=== PATIENT | male | born 1970 | race Caucasian/White ===

== ENCOUNTER 2016-06-25 21:05 | Emergency (ER) | payer SELFPAY ==
[2016-06-25] MEDS ORDERED: DOXYcycline CAP(*) 100 MG PO ONE ×2 (21:46→21:47)
--- NOTE | 2016-06-25 21:59 | ED ---
Throat Pain/Nasal Congestion - HPI Summary HPI Summary: Pt here w/ Lt sided hearing loss x 2 days. Has had ear discomfort/fullness and sensation that something is in his ear x 2 weeks. When it initially started, got worse after submerging his head underwater in the bath. Thought he may have induced swimmer's ear so started using ear drops - no relief except with an oil based ear drop but this was temporary. He's been taking ibuprofen as well. Has had nasal congestion as well - worse the past couple of days and had a nose bleed earlier today as a result of digital trauma. Stopped w/ pressure and hasn' t returned. Diarrhea 1 x yesterday - normal BM's since. Fever which broke in sweat last night. Denies chills, nausea, vomiting, neck pain. He' starting to get a sore throat. Denies cough, trouble breathing. - History of Current Complaint Chief Complaint: EDEarPain Time Seen by Provider: 06/25/16 21:21 Hx Obtained From: Patient - Allergies/Home Medications Allergies/Adverse Reactions: Allergies Allergy/AdvReac Type Severity Reaction Status Date / Time No Known Allergies Allergy Verified 04/12/16 11:57 PMH/Surg Hx/FS Hx/Imm Hx Previously Healthy: Yes Endocrine/Hematology History: Denies: Hx Diabetes Cardiovascular History: Reports: Hx Angina, Hx Hypertension - pt reports this was d/t a drug habit - improved once he quit - no meds sinc Denies: Hx Congestive Heart Failure Respiratory History: Reports: Other Respiratory Problems/Disorders - pneumothorax Denies: Hx Asthma, Hx Chronic Obstructive Pulmonary Disease (COPD) GI History: Reports: Hx Gastroesophageal Reflux Disease History: Denies: Hx Renal Disease Psychiatric History: Reports: Hx of Violent Episodes Against Others Denies: Hx Eating Disorder - Surgical History Surgery Procedure, Year, and Place: appy Infectious Disease History: No Infectious Disease History: Denies: Hx of Known/Suspected MRSA, Traveled Outside the [place] in Last 30 Days - Family History Known Family History: Positive: Unknown - Social History Occupation: Employed Full-time - self employed Lives: With Family Alcohol Use: Weekly - 5 drinks per week Alcohol Amount: unknown Hx Substance Use: Yes Substance Use Type: Reports: Cocaine, Marijuana Substance Use Comment - Amount & Last Used: 10/26/14 Hx Tobacco Use: Yes Smoking Status (MU): Current Every Day Smoker Amount Used/How Often: 1.5 PPD Review of Systems Constitutional: Other - see HPI Negative: Photophobia, Blurred Vision, Diplopia, Drainage, Erythema ENT: Other - see HPI Negative: Chest Pain Negative: Shortness Of Breath, Cough Gastrointestinal: Other - see HPI Positive: no symptoms reported Negative: Rash Neurological: Negative Psychological: Normal All Other Systems Reviewed And Are Negative: Yes Physical Exam Triage Information Reviewed: Yes Vital Signs On Initial Exam: Initial Vitals Temp Pulse Resp BP Pulse Ox 97.9 F 101 16 177/115 100 06/25/16 21:09 06/25/16 21:09 06/25/16 21:09 06/25/16 21:09 06/25/16 21:09 Vital Signs Reviewed: Yes Appearance: Positive: Well-Appearing, No Pain Distress, Well-Nourished Skin: Positive: Warm, Dry - no erythema, no vesicles over ear/face/scalp Head/Face: Positive: Other - Lt maxillary sinus w/ mild TTP; frontal sinus NTTP Eyes: Positive: Normal, EOMI, Conjunctiva Clear. Negative: Conjunctiva Inflammed, Discharge ENT: Positive: Hearing grossly normal, Pharyngeal erythema, Nasal congestion - Rt nasal passage occluded with boggy turbinates; Lt nasal mucosa w/ yellow mucous vs. ulcerations and scant dried blood. Negative: Nasal drainage, TM red - Rt TM normal; Lt TM w/ opaque fluid behind - no air bubbles or fluid level; ossicles are visible - no erythema, no capillary injection, no edema, no d/c, NTTP, Tonsillar swelling, Tonsillar exudate Neck: Positive: Supple, Tenderness @, Enlarged Nodes @ - B/L posterior cc Ln's; Lt anterior cc LN's and Lt submandibular glands w/ mild TTP Respiratory/Lung Sounds: Positive: Clear to Auscultation, Breath Sounds Present , Other - scar over trachea - pt reports this is from h/o chix pox as an adult w / airway complications resulting in a trach. Negative: Rales, Rhonchi, Stridor , Wheezes Cardiovascular: Positive: Normal, RRR, S1, S2 Musculoskeletal: Positive: Normal, Strength/ROM Intact Neurological: Positive: Normal, Sensory/Motor Intact, Alert, Oriented to Person Place, Time, CN Intact II-III Psychiatric: Positive: Normal Diagnostics - Vital Signs Vital Signs Temp Pulse Resp BP Pulse Ox 06/25/16 21:09 97.9 F 101 16 177/115 100 - Laboratory Lab Statement: Any lab studies that have been ordered have been reviewed, and results considered in the medical decision making process. EENT Course/Dx - Course Course Of Treatment: Explained to pt his hearing loss is most likely the result of fluid behind his Lt ear. This appears to be from nasal congestion and infection which will be treated with doxycycline. Ln's are inflammed as well which NSAID and anbx should address however advised pt to f/u w/ PCP, free clinic or return here if sx persist or worsen. Pt voices understanding. Also discussed his high BP - needs to have this recheck as well and avoid medications that may cause a rise in BP. Pt voices understanding. - Diagnoses Provider Diagnoses: Rhinosinusitis, Inner ear dysfunction Discharge - Discharge Plan Condition: Stable Disposition: HOME Prescriptions: DOXYcycline CAP(*) [DOXYcycline 100MG CAP(*)] 100 mg PO BID #18 cap Patient Education Materials: Rhinosinusitis (ED) Referrals: Timothy Edge MD [Primary Care Provider] - [facility] [Outside] Additional Instructions: You appear to have a nasal/sinus infection which is causing swelling. This swelling can push into your eustachian tube, causing you to have ear congestion and changes/loss in hearing. It is important that you continue ibuprofen with food for swelling control. You may also use saline nasal spray and salt water gargles to reduce swelling of surrounding tissues. Complete antibiotics and follow-up with your PCP. If you do not have one, you may be seen at the free clinic for a re-check or return here. *If symptoms worsen, return to ED
[2016-06-25 22:18] VITALS: BP 160/96
== END 2016-06-25 22:17 | disposition home or self-care (01) ==
LOC: ED 21:05
DX: J32.8 Other chronic sinusitis (principal); H83.2X9 Labyrinthine dysfunction, unspecified ear
CPT/HCPCS: 87641; 99281; A9270-GY

== ENCOUNTER 2016-07-01 03:26 | Emergency (ER) | payer SELFPAY ==
[2016-07-01] MEDS ORDERED: diPHENhydraMINE PO* 50 MG PO ONE (04:39)
[2016-07-01] MEDS ORDERED: Lisinopril TAB* 5 MG PO ONE (04:39)
[2016-07-01] MEDS ORDERED: Acetaminophen TAB* 325 MG PO ONE (04:40)
--- NOTE | 2016-07-01 04:47 | ED ---
Samir Gonzalez SooYoung, scribed for Hiren Rueda MD on 07/01/16 at 0348 . Allergic Reaction/Systemic - HPI Summary HPI Summary: A 46 y/o M presents to ED with c/o L frontal CORTES onset 0230. Describes the pain as "crushing, squeezing." Associated sx: throat pain, L ear pain. He says it feels as though his throat is closing. Aggravating factors: swallowing. Pt is taking Doxy for a sinus infection of L ear. He states having taken a few doses of Doxy and each time, afterwards, he would get a mild CORTES. With each dose, the CORTES seems to get worse. He recently missed two doses and did not have a CORTES. He took Doxy this AM at approx 0200. Pt took 800mg IBP around approx 0130 last night, prior to taking the Doxy, hoping it would prevent the CORTES. - History of Current Complaint Chief Complaint: EDAllergicReaction Time Seen by Provider: 07/01/16 03:28 Hx Obtained From: Patient Onset/Duration: Started hours ago, Still Present Timing: Constant Severity Currently: Mild Pain Intensity: 0 Pain Scale Used: 0-10 Numeric Location: Discrete @ - L frontal CORTES - Allergies/Home Medications Allergies/Adverse Reactions: Allergies Allergy/AdvReac Type Severity Reaction Status Date / Time No Known Allergies Allergy Verified 04/12/16 11:57 PMH/Surg Hx/FS Hx/Imm Hx Previously Healthy: No Endocrine/Hematology History: Denies: Hx Diabetes Cardiovascular History: Reports: Hx Angina, Hx Hypertension - pt reports this was d/t a drug habit - improved once he quit - no meds sinc Denies: Hx Congestive Heart Failure Respiratory History: Reports: Other Respiratory Problems/Disorders - pneumothorax Denies: Hx Asthma, Hx Chronic Obstructive Pulmonary Disease (COPD) GI History: Reports: Hx Gastroesophageal Reflux Disease History: Denies: Hx Renal Disease Psychiatric History: Reports: Hx of Violent Episodes Against Others Denies: Hx Eating Disorder - Surgical History Surgery Procedure, Year, and Place: appy Infectious Disease History: No Infectious Disease History: Denies: Hx of Known/Suspected MRSA, Traveled Outside the [place] in Last 30 Days - Family History Known Family History: Positive: Other - pos: depression, EtOH abuse Negative: Cardiac Disease - Social History Occupation: Employed Full-time - SELF-EMPLOYED Lives: Alone Alcohol Use: Weekly - 5 drinks per week Alcohol Amount: unknown Hx Substance Use: Yes Substance Use Type: Reports: Cocaine, Marijuana Substance Use Comment - Amount & Last Used: 10/26/14 Hx Tobacco Use: Yes Smoking Status (MU): Current Every Day Smoker Amount Used/How Often: 1.5 PPD Review of Systems Positive: Ear Ache - L, Other - throat swelling Positive: Headache - L frontal All Other Systems Reviewed And Are Negative: Yes Physical Exam Triage Information Reviewed: Yes Vital Signs On Initial Exam: Initial Vitals Temp Pulse Resp BP Pulse Ox 98.3 F 94 19 176/118 95 07/01/16 03:33 07/01/16 03:33 07/01/16 03:33 07/01/16 03:33 07/01/16 03:33 Vital Signs Reviewed: Yes Appearance: Positive: Well-Appearing, Pain Distress - MILD Skin: Positive: Warm, Skin Color Reflects Adequate Perfusion, Dry Head/Face: Positive: Normal Head/Face Inspection Eyes: Positive: EOMI, BRYNN ENT: Positive: Normal ENT inspection, Pharynx normal - POSTERIOR PHARYNX IS OPEN , BENIGN, Nasal drainage - RHINORRHEA, TMs normal Neck: Positive: Supple, Nontender Respiratory/Lung Sounds: Positive: Clear to Auscultation, Breath Sounds Present , Other - LUNGS CLEAR. Negative: Stridor Cardiovascular: Positive: RRR Abdomen Description: Positive: Nontender, Soft Bowel Sounds: Positive: Present Musculoskeletal: Positive: Normal, Strength/ROM Intact Neurological: Positive: Normal, Sensory/Motor Intact, Alert, Oriented to Person Place, Time Psychiatric: Positive: Affect/Mood Appropriate Diagnostics - Vital Signs Vital Signs Temp Pulse Resp BP Pulse Ox 07/01/16 03:33 98.3 F 94 19 176/118 95 - Laboratory Lab Statement: Any lab studies that have been ordered have been reviewed, and results considered in the medical decision making process. Allergic Reaction Course/Dx - Course Assessment/Plan: THE HEADACHE HAS OCCURRED 3-4 TIMES IMMEDIATELY AFTER TAKING DOXYCYCLINE. BP IS ALSO HIGH. PATIENT HAS BEEN ON LISINOPRIL 5MG PO QD IN THE PAST. WILL RESTART THAT. STOP THE DOXYCYCLINE, REPLACE WITH AUGMENTIN. F/U WITH PMD. DISCHARGE HOME STABLE. - Diagnoses Provider Diagnoses: Headache, Hypertension, Sinusitis Discharge - Discharge Plan Condition: Stable Disposition: HOME Prescriptions: Amoxicillin/Clavulanate TAB* [Augmentin TAB 875*] 875 mg PO BID #20 tab Lisinopril TAB* [Prinivil TAB 5 MG*] 5 mg PO DAILY #30 tab Patient Education Materials: Acute Headache (ED), Hypertension (ED), Sinusitis (ED) Referrals: Timothy Edge MD [Primary Care Provider] - Additional Instructions: FOLLOW UP WITH YOUR DOCTOR FOR YOUR HIGH BLOOD PRESSURE. STOP THE DOXYCYCLINE. START AUGMENTIN. TAKE THE LISINOPRIL DIRECTED. RETURN TO THE EMERGENCY DEPARTMENT FOR ANY WORSENING OF YOUR CONDITION; HEADACHE , DIFFICULTY WITH SWALLOWING OR BREATHING OR QUESTIONS OR CONCERNS. The documentation as recorded by the Samir hurd SooYoung accurately reflects the service I personally performed and the decisions made by me, Hiren Rueda MD.
[2016-07-01 06:02] VITALS: BP 167/108
== END 2016-07-01 06:02 | disposition home or self-care (01) ==
LOC: ED 03:26
DX: R51 Headache (principal); I10 Essential (primary) hypertension; J32.9 Chronic sinusitis, unspecified; K21.9 Gastro-esophageal reflux disease without esophagitis; F17.210 Nicotine dependence, cigarettes, uncomplicated
CPT/HCPCS: 99283; A9270-GY

== ENCOUNTER 2016-12-25 11:31 | Emergency (ER) | payer SELFPAY ==
[2016-12-25] MEDS ORDERED: Ketorolac INJ* 30 MG/ML 1 ML VIAL IV PUSH ONE (13:30)
[2016-12-25] MEDS ORDERED: Clindamycin 600 MG IVPREMIX(* 600 MG/50 ML SDV IV ONE (13:30)
[2016-12-25] MEDS ORDERED: traMADol TAB* 50 MG PO ONE (16:33)
--- NOTE | 2016-12-25 16:42 | ED ---
Throat Pain/Nasal Congestion - HPI Summary HPI Summary: Pt here w/ Lt lower edntal pain x 1 week. Wiggled it last night as it was loose. This morning at 3am noticed facial swelling, By 6am was much worse. Painful. Denies fever, chills, n/v. Pain radiates into jaw, ear and just under jaw into neck. No trouble breathing or swallowing. H/o dental issue here. 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 - History of Current Complaint Chief Complaint: EDDentalPain Time Seen by Provider: 12/25/16 12:01 Hx Obtained From: Patient - Allergies/Home Medications Allergies/Adverse Reactions: Allergies Allergy/AdvReac Type Severity Reaction Status Date / Time No Known Allergies Allergy Verified 12/25/16 11:53 PMH/Surg Hx/FS Hx/Imm Hx Endocrine/Hematology History: Denies: Hx Diabetes Cardiovascular History: Reports: Hx Angina, Hx Hypertension - pt reports this was d/t a drug habit - improved once he quit - no meds sinc Denies: Hx Congestive Heart Failure Respiratory History: Reports: Other Respiratory Problems/Disorders - pneumothorax Denies: Hx Asthma, Hx Chronic Obstructive Pulmonary Disease (COPD) GI History: Reports: Hx Gastroesophageal Reflux Disease History: Denies: Hx Renal Disease Psychiatric History: Reports: Hx of Violent Episodes Against Others Denies: Hx Eating Disorder - Surgical History Surgery Procedure, Year, and Place: appy Infectious Disease History: No Infectious Disease History: Denies: Hx of Known/Suspected MRSA, Traveled Outside the [place] in Last 30 Days - Family History Known Family History: Positive: Unknown, Other - pos: depression, EtOH abuse Negative: Cardiac Disease - Social History Alcohol Use: Weekly Alcohol Amount: unknown Hx Substance Use: Yes Substance Use Type: Reports: Cocaine, Marijuana Substance Use Comment - Amount & Last Used: 10/26/14 Hx Tobacco Use: Yes Smoking Status (MU): Current Every Day Smoker Amount Used/How Often: 1.5 PPD Physical Exam Vital Signs On Initial Exam: Initial Vitals Temp Pulse Resp BP Pulse Ox 97.7 F 90 18 154/116 99 12/25/16 11:33 12/25/16 11:33 12/25/16 11:33 12/25/16 11:33 12/25/16 11:33 Procedures - Procedure Summary Procedure Summary: Farhan blanc lollipop + cetacaine spray + lido w/ epi - gingival I&D near affected tooth w/ #15 - no purulent drainage, just blood - rinsed with saline after - tolerated well - gauze placed Diagnostics - Vital Signs Vital Signs Temp Pulse Resp BP Pulse Ox 12/25/16 13:53 71 16 146/88 99 12/25/16 11:51 97.7 F 90 18 154/116 97 12/25/16 11:33 97.7 F 90 18 154/116 99 - Laboratory Lab Statement: Any lab studies that have been ordered have been reviewed, and results considered in the medical decision making process. Re-Evaluation - Re-Evaluation First Eval Change: Improved - pt reports swelling has gone down some since toradol, clindamycin IV Discharge - Discharge Plan Condition: Stable Disposition: HOME Prescriptions: Clindamycin CAP* [Cleocin 150 MG CAP*] 300 mg PO Q6H #80 cap traMADol TAB* [Ultram*] 50 mg PO Q6HR PRN #12 tab MDD 4 PRN Reason: Pain Patient Education Materials: Abscess (ED) Referrals: Timothy Edge MD [Primary Care Provider] - Additional Instructions: Continue salt water rinses 5-6 x day - after eating Warm compresses over cheek You may take acetaminophen alternating with tramadol for pain Complete antibiotics - take probiotics in between to prevent diarrhea Porbiotics: Yogurt and/or capsules of L. acidophilus, L. bifidus, L. casei, etc - make sure to get these from the refrigerated food section as they are live and active cultures Follow-up with dentist EJLANI - call Tuesday for appointment *If you facial swelling, pain is worse prior or you develop neck pain, headache , trouble swallowing or breathing, return to ED
[2016-12-25 16:51] VITALS: BP 139/76
== END 2016-12-25 16:49 | disposition home or self-care (01) ==
LOC: ED 11:31
DX: K08.89 Other specified disorders of teeth and supporting structures (principal); F17.210 Nicotine dependence, cigarettes, uncomplicated
CPT/HCPCS: 96374; 96375; 99282; A9270-GY; J1885

== ENCOUNTER 2017-02-01 04:36 | Emergency (ER) | payer SELFPAY ==
[2017-02-01] MEDS ORDERED: Ondansetron INJ* 2 MG/ML VIAL IV ONE (05:27)
[2017-02-01] MEDS ORDERED: Morphine INJ* 4 MG/ML 1 ML SYRINGE IV ONE (05:27)
[2017-02-01] MEDS ORDERED: Lisinopril TAB* 10 MG PO ONE (05:32)
[2017-02-01 06:20] LABS: Hematocrit 38 % (42-52); Hemoglobin 12.6 g/dl (14.0-18.0); Mean Corpuscular HGB Conc 33 g/dl (31-36); Mean Corpuscular Hemoglobin 29 pg (27-31); Mean Corpuscular Volume 89 fL (80-94); Mean Platelet Volume 10 um3 (7.4-10.4); Red Blood Count 4.33 10^6/ul (4.0-5.4); Red Cell Distribution Width 14 % (10.5-15)
[2017-02-01 06:27] LABS: Albumin 3.7 g/dL (3.2-5.2); BUN/Creatinine Ratio 24.7 (8-20); Calcium 9.1 mg/dL (8.6-10.3); EGFR African American 132.5 (>60); Globulin 3.2 g/dL (2-4); Potassium 3.7 mmol/L (3.5-5.0); Total Bilirubin 0.3 mg/dL (0.2-1.0); Total Protein 6.9 g/dL (6.4-8.9)
[2017-02-01 06:43] VITALS: BP 160/101
--- NOTE | 2017-02-01 06:47 | ED ---
I, Kenny,Celestina, scribed for Peter Meredith MD on 02/01/17 at 0527 . Headache - HPI Summary HPI Summary: This 47 y/o male presents to ED for gradually worsening frontal CORTES that started a week ago but worse since yesterday. Positive blurred vision, elevated blood pressure of 180/134. Pt is currently on 10 mg Lisinopril a day. PMHx does includes HTN, GERD, and anxiety/depression. Pt does have dental pain at left bottom jaw that will be followed up by oral surgeon 3 days from today. Primary care involves Dr. Edge. - History Of Current Complaint Chief Complaint: EDHeadache Stated Complaint: HIGH BLOOD PRESSURE//HEADACE Time Seen by Provider: 02/01/17 05:17 Hx Obtained From: Patient, Medical Records Onset/Duration: Gradual Onset Timing: Constant Character: Throbbing Location of Headache: Frontal Aggravating Factor: Nothing Allevating Factors: Nothing Associated Signs And Symptoms: Nausea, Vomiting - Allergies/Home Medications Allergies/Adverse Reactions: Allergies Allergy/AdvReac Type Severity Reaction Status Date / Time No Known Allergies Allergy Verified 02/01/17 04:44 PMH/Surg Hx/FS Hx/Imm Hx Endocrine/Hematology History: Denies: Hx Diabetes Cardiovascular History: Reports: Hx Angina, Hx Hypertension - pt reports this was d/t a drug habit - improved once he quit - no meds sinc Denies: Hx Congestive Heart Failure Respiratory History: Reports: Other Respiratory Problems/Disorders - pneumothorax Denies: Hx Asthma, Hx Chronic Obstructive Pulmonary Disease (COPD) GI History: Reports: Hx Gastroesophageal Reflux Disease History: Denies: Hx Renal Disease Psychiatric History: Reports: Hx of Violent Episodes Against Others Denies: Hx Eating Disorder - Surgical History Surgery Procedure, Year, and Place: appy Infectious Disease History: No Infectious Disease History: Denies: Hx of Known/Suspected MRSA, Traveled Outside the [place] in Last 30 Days - Family History Known Family History: Positive: Other - pos: depression, EtOH abuse Negative: Cardiac Disease - Social History Alcohol Use: Weekly Alcohol Amount: unknown Hx Substance Use: Yes Substance Use Type: Reports: Cocaine, Marijuana Substance Use Comment - Amount & Last Used: last used 10/26/14 Hx Tobacco Use: Yes Smoking Status (MU): Current Every Day Smoker Amount Used/How Often: 1.5 PPD Review of Systems Negative: Fever Positive: Dental Pain - left lower jaw Positive: Vomiting, Nausea Positive: Headache All Other Systems Reviewed And Are Negative: Yes Physical Exam - Summary Physical Exam Summary: The patient is well-nourished in no acute distress and in no acute pain. The skin is warm and dry and skin color reflects adequate perfusion. HEENT: The head is normocephalic and atraumatic. The pupils are equal and reactive. Pt appears to be photophobic. EOMI. The conjunctivae are clear and without drainage. Nares are patent and without drainage. Mouth reveals moist mucous membranes and the throat is without erythema and exudate. The external ears are intact. The ear canals are patent and without drainage. The tympanic membranes are intact. Neck is supple with full range of motion and non-tender. No nuchal rigidity. There are no carotid bruits. There is no neck vein distension. Respiratory: Chest is non-tender. Lungs are clear to auscultation and breath sounds are symmetrical and equal. Cardiovascular: Heart is regular rate and rhythm. There is no murmur or rub auscultated. There is no peripheral edema and pulses are symmetrical and equal. Abdomen: The abdomen is soft and non-tender. Diffuse rhonchi and wheezes throughout. Musculoskeletal: There is no back pain noted. Extremities are non-tender with full range of motion. There is good capillary refill. There is no peripheral edema or calf tenderness elicited. Mild pitting edema. Neurological: Patient is alert and oriented to person, place and time. The patient has symmetrical motor strength in all four extremities. Cranial nerves are grossly intact. Deep tendon reflexes are symmetrical and equal in all four extremities. Psychiatric: The patient has an appropriate affect and does not exhibit any anxiety or depression. Triage Information Reviewed: Yes Vital Signs On Initial Exam: Initial Vitals Temp Pulse Resp BP Pulse Ox 97.7 F 74 16 152/101 98 02/01/17 04:45 02/01/17 04:45 02/01/17 04:45 02/01/17 04:45 02/01/17 04:45 Vital Signs Reviewed: Yes - Dru Coma Scale Coma Scale Total: 15 Diagnostics - Vital Signs Vital Signs Temp Pulse Resp BP Pulse Ox 02/01/17 04:45 97.7 F 74 16 152/101 98 - Laboratory Lab Results: Lab Results 02/01/17 02/01/17 02/01/17 Range/Units 06:00 06:00 06:00 WBC 14.0 H (3.5-10.8) 10^3/ul RBC 4.33 (4.0-5.4) 10^6/ul Hgb 12.6 L (14.0-18.0) g/dl Hct 38 L (42-52) % MCV 89 (80-94) fL MCH 29 (27-31) pg MCHC 33 (31-36) g/dl RDW 14 (10.5-15) % Plt Count 231 (150-450) 10^3/ul MPV 10 (7.4-10.4) um3 Neut % (Auto) 73.4 (38-83) % Lymph % (Auto) 14.7 L (25-47) % Bureau % (Auto) 7.5 (1-9) % Eos % (Auto) 3.4 (0-6) % Baso % (Auto) 1.0 (0-2) % Absolute Neuts (auto) 10.3 H (1.5-7.7) 10^3/ul Absolute Lymphs (auto) 2.1 (1.0-4.8) 10^3/ul Absolute Monos (auto) 1.0 H (0-0.8) 10^3/ul Absolute Eos (auto) 0.5 (0-0.6) 10^3/ul Absolute Basos (auto) 0.1 (0-0.2) 10^3/ul Absolute Nucleated RBC 0 10^3/ul Nucleated RBC % 0 Sodium 137 (133-145) mmol/L Potassium 3.7 (3.5-5.0) mmol/L Chloride 104 (101-111) mmol/L Carbon Dioxide 28 (22-32) mmol/L Anion Gap 5 (2-11) mmol/L BUN 20 (6-24) mg/dL Creatinine 0.81 (0.67-1.17) mg/dL Est GFR ( Amer) 132.5 (>60) Est GFR (Non-Af Amer) 103.0 (>60) BUN/Creatinine Ratio 24.7 H (8-20) Glucose 104 H (70-100) mg/dL Lactic Acid 0.5 (0.5-2.0) mmol/L Calcium 9.1 (8.6-10.3) mg/dL Total Bilirubin 0.30 (0.2-1.0) mg/dL AST 11 L (13-39) U/L ALT 10 (7-52) U/L Alkaline Phosphatase 57 (34-104) U/L Total Protein 6.9 (6.4-8.9) g/dL Albumin 3.7 (3.2-5.2) g/dL Globulin 3.2 (2-4) g/dL Albumin/Globulin Ratio 1.2 (1-3) Result Diagrams: 02/01/17 06:00 02/01/17 06:00 Lab Statement: Any lab studies that have been ordered have been reviewed, and results considered in the medical decision making process. - CT Brain CT Interpretation: No Acute Changes - 9 mm hypodensity appearing in mid upper eyelid since 09/24/2014. question epidermal cyst or other skin-based lesion. No acute brain parenchymal abnormality. No hemorrhage, mass or acute territorial infarct. Minimal mucoperiosteal thicekning paranasal insues. New left mastoid effusion middle ear cavities clear. CT Interpretation Completed By: Radiologist - EKG 0534 Cardiac Rate: NL EKG Rhythm: Sinus Rhythm EKG Interpretation: Poor R wave progression Re-Evaluation - Re-Evaluation First Eval Re-Evaluation Time: 06:30 Comment: in room to re-evaluate pt. Headache Course/Dx - Course Assessment/Plan: This 47 y/o male presents to ED for gradually worsening CORTES that started a week ago but worse since yesterday. Lisinopril is increased 20 mg QD. Blood work indicates elevated WBC of 14.0, but otherwise wnl. CT Brain indicates 9 mm hypodensity appearing in mid upper eyelid since 09/24/2014. question epidermal cyst or other skin-based lesion. No acute brain parenchymal abnormality. No hemorrhage, mass or acute territorial infarct. Minimal mucoperiosteal thicekning paranasal insues. New left mastoid effusion middle ear cavities clear. Pt is recommended to increase his Lisinopril to 20 mg QD. He is discharged with outpatient fu instruction. - Diagnoses Differential Diagnosis/HQI/PQRI: Migraine, Subarachnoid Hemorrhage Provider Diagnoses: headache, Hypertension Discharge - Discharge Plan Condition: Stable Disposition: HOME Prescriptions: oxyCODONE/Acetamin 5/325 MG* [Percocet 5/325 TAB*] 1 tab PO Q6H PRN #20 tab MDD 4 PRN Reason: pain Patient Education Materials: Oxycodone/Acetaminophen (By mouth), Hypertension ( ED), General Headache (ED) Referrals: Timothy Edge MD [Primary Care Provider] - 2 Days Additional Instructions: Increase your Lisinopril to 20 mg a day. The documentation as recorded by the Kenny hurd Soohyun accurately reflects the service I personally performed and the decisions made by me, Peter Meredith MD.
--- NOTE | 2017-02-01 08:24 | RAD ---
INDICATION: Headaches COMPARISON: Maxillofacial CT August 07, 2015 TECHNIQUE: Noncontrast axial source images were acquired from the skull base to the vertex. FINDINGS: Ventricles/sulci: The ventricles and cisterns are normal in size and configuration for age. Brain parenchyma: There is no focal parenchymal finding, evidence of intracranial mass, or intracranial mass effect. Intracranial hemorrhage:None. Extra-axial spaces: There are no abnormal extra axial fluid collections or evidence of extra-axial mass. Calvarium: There is no calvarial fracture or other calvarial abnormality. Scalp: There is no evidence of scalp or extracalvarial soft tissue abnormality. Paranasal sinuses/mastoid: There is mild ethmoid sinusitis. Other: None. IMPRESSION: No acute intracranial findings. Mild ethmoid and left maxillary antral sinusitis
== END 2017-02-01 06:43 | disposition home or self-care (01) ==
LOC: ED 04:36
DX: R51 Headache (principal); I10 Essential (primary) hypertension; R11.2 Nausea with vomiting, unspecified; I20.9 Angina pectoris, unspecified; K21.9 Gastro-esophageal reflux disease without esophagitis; F12.90 Cannabis use, unspecified, uncomplicated; F17.210 Nicotine dependence, cigarettes, uncomplicated
CPT/HCPCS: 36415; 70450; 80053; 83605; 85025; 93005; 96374; 96375; 99284; A9270-GY; J2270; J2405

== ENCOUNTER 2017-07-28 12:28 | Emergency (ER) | payer SELFPAY ==
[2017-07-28 14:37] LABS: ABS Basophils 0.1 10^3/ul (0-0.2); ABS Eosinophils 0.2 10^3/ul (0-0.6); ABS Lymphocytes 2.2 10^3/ul (1.0-4.8); ABS Monocytes 0.7 10^3/ul (0-0.8); ABS Neutrophils 5.9 10^3/ul (1.5-7.7); ABS Nucleated RBC 0 10^3/ul; Eosinophil % 2.7 % (0-6); Hematocrit 47 % (42-52); Hemoglobin 15.8 g/dl (14.0-18.0); Lymphocyte % 24.4 % (25-47); Mean Corpuscular HGB Conc 34 g/dl (31-36); Mean Corpuscular Hemoglobin 30 pg (27-31); Mean Corpuscular Volume 88 fL (80-94); Mean Platelet Volume 10 um3 (7.4-10.4); Nucleated Red Blood Cells % 0.1; Platelet Count 192 10^3/ul (150-450); Red Blood Count 5.37 10^6/ul (4.0-5.4); Red Cell Distribution Width 15 % (10.5-15); White Blood Count 9.2 10^3/ul (3.5-10.8)
[2017-07-28] MEDS: NS 0.9% 1000 ML* 1,000 ML IV ONE (14:39)
[2017-07-28] MEDS: diPHENhydraMINE IV* 50 MG/ML 1 ml VIAL (BENADRYL) IV ONE (14:39)
[2017-07-28] MEDS: Ketorolac INJ* 30 MG/ML 1 ML VIAL IV ONE (14:39)
[2017-07-28] MEDS: Metoclopramide IV* 5 MG/ML 2 ML VIAL IV ONE (14:39)
[2017-07-28 14:40] LABS: Urine Appearance Clear; Urine Blood Negative (Negative); Urine Color Yellow; Urine Ketones Negative (Negative); Urine Protein Negative (Negative); Urine Specific Gravity 1.013 (1.010-1.030); Urine Urobilinogen Negative (Negative)
--- NOTE | 2017-07-28 14:49 | RAD ---
INDICATION: Headaches COMPARISON: A 22,017 TECHNIQUE: Noncontrast axial source images were acquired from the skull base to the vertex. FINDINGS: Ventricles/sulci: The ventricles and cisterns are normal in size and configuration for age. Brain parenchyma: There is no focal parenchymal finding, evidence of intracranial mass, or intracranial mass effect. Intracranial hemorrhage:None. Extra-axial spaces: There are no abnormal extra axial fluid collections or evidence of extra-axial mass. Calvarium: There is no calvarial fracture or other calvarial abnormality. Scalp: There is no evidence of scalp or extracalvarial soft tissue abnormality. Paranasal sinuses/mastoid: The paranasal sinuses and mastoid air cells are clear. Other: None. IMPRESSION: NEGATIVE EXAMINATION
[2017-07-28 15:15] LABS: EGFR Non-African American 87.9 (>60)
--- NOTE | 2017-07-28 15:41 | RAD ---
HISTORY: Wheezing COMPARISONS: August 07, 2015 VIEWS: 4: Frontal dual-energy and lateral views of the chest. FINDINGS: CARDIOMEDIASTINAL SILHOUETTE: The cardiomediastinal silhouette is normal. BRETT: The brett are normal. PLEURA: The costophrenic angles are sharp. No pleural abnormalities are noted. LUNG PARENCHYMA: The lungs are clear. ABDOMEN: The upper abdomen is clear. There is no subphrenic gas. BONES AND SOFT TISSUES: No bone or soft tissue abnormalities are noted. OTHER: None. IMPRESSION: NO ACTIVE CARDIOPULMONARY DISEASE.
[2017-07-28] MEDS: Albuterol/Ipratropium NEB.SOL* Albuterol 2.5 MG/Ipratropium 0.5 MG 3 ML INH ONE (16:08)
[2017-07-28 16:45] VITALS: BP 133/85
--- NOTE | 2017-07-29 16:52 | ED ---
Ron Gonzalez Angela, scribed for Maged Mirza MD on 07/28/17 at 1426 . Influenza-Like Illness - HPI Summary HPI Summary: This pt is a 47 y/o male presenting to [facility] c/o headache, body aches, and fatigue x36 hours. Pt reports that all he has been doing for the past 36 hours is sleep. Pt describes he feels like a "spike" going through his head. He states he had a couple of episodes of blurry vision. He denies SOB, chest pain. Pt is a current smoker. - History of Current Complaint Chief Complaint: EDHeadache Time Seen by Provider: 07/28/17 13:59 Hx Obtained From: Patient Onset/Duration: Lasting Hours - 36, Still Present Severity: Moderate Associated Signs & Symptoms: Myalgia, Headache - Allergy/Home Medications Allergies/Adverse Reactions: Allergies Allergy/AdvReac Type Severity Reaction Status Date / Time No Known Allergies Allergy Verified 02/01/17 04:44 PMH/Surg Hx/FS Hx/Imm Hx Endocrine/Hematology History: Denies: Hx Diabetes Cardiovascular History: Reports: Hx Angina, Hx Hypertension - pt reports this was d/t a drug habit - improved once he quit - no meds sinc Denies: Hx Congestive Heart Failure Respiratory History: Reports: Other Respiratory Problems/Disorders - pneumothorax Denies: Hx Asthma, Hx Chronic Obstructive Pulmonary Disease (COPD) GI History: Reports: Hx Gastroesophageal Reflux Disease History: Denies: Hx Renal Disease Psychiatric History: Reports: Hx of Violent Episodes Against Others Denies: Hx Eating Disorder - Surgical History Surgery Procedure, Year, and Place: [place] Infectious Disease History: No Infectious Disease History: Denies: Hx of Known/Suspected MRSA, Traveled Outside the [place] in Last 30 Days - Family History Known Family History: Positive: Other - pos: depression, EtOH abuse Negative: Cardiac Disease - Social History Alcohol Use: Weekly Alcohol Amount: unknown Hx Substance Use: Yes Substance Use Type: Reports: Cocaine, Marijuana Substance Use Comment - Amount & Last Used: last used 10/26/14 Hx Tobacco Use: Yes Smoking Status (MU): Heavy Every Day Tobacco Smoker Amount Used/How Often: 1.5 PPD Review of Systems Positive: Fatigue. Negative: Fever, Chills Positive: Blurred Vision Negative: Chest Pain Negative: Shortness Of Breath Positive: Myalgia Positive: Headache All Other Systems Reviewed And Are Negative: Yes Physical Exam - Summary Physical Exam Summary: VITAL SIGNS: Reviewed. GENERAL: Patient is a well-developed and nourished male who is lying comfortable in the stretcher. Patient is not in any acute respiratory distress. HEAD AND FACE: No signs of trauma. No ecchymosis, hematomas or skull depressions. No sinus tenderness. EYES: PERRLA, EOMI x 2, No injected conjunctiva, no nystagmus. EARS: Hearing grossly intact. Ear canals and tympanic membranes are within normal limits. MOUTH: Oropharynx within normal limits. NECK: Supple, trachea is midline, no adenopathy, no JVD, no carotid bruit, no c- spine tenderness, neck with full ROM. No meningeal signs. CHEST: Symmetric, no tenderness at palpation LUNGS: Pt has wheezing. CVS: Regular rate and rhythm, S1 and S2 present, no murmurs or gallops appreciated. ABDOMEN: Soft, non-tender. No signs of distention. No rebound no guarding, and no masses palpated. Bowel sounds are normal. EXTREMITIES: FROM in all major joints, no edema, no cyanosis or clubbing. NEURO: Alert and oriented x 3. No acute neurological deficits. Speech is normal and follows commands. SKIN: Dry and warm GCS: 15 Triage Information Reviewed: Yes Vital Signs On Initial Exam: Initial Vitals Temp Pulse Resp BP Pulse Ox 98.1 F 72 17 166/109 95 07/28/17 12:36 07/28/17 12:36 07/28/17 12:36 07/28/17 12:36 07/28/17 12:36 Vital Signs Reviewed: Yes - Dru Coma Scale Best Eye Response: 4 - Spontaneous Best Motor Response: 6 - Obeys Commands Best Verbal Response: 5 - Oriented Coma Scale Total: 15 Diagnostics - Vital Signs Vital Signs Temp Pulse Resp BP Pulse Ox 07/28/17 13:30 73 129/89 96 07/28/17 13:00 70 146/104 95 07/28/17 12:48 75 97 07/28/17 12:46 144/106 07/28/17 12:36 98.1 F 72 17 166/109 95 - Laboratory Result Diagrams: 07/28/17 14:25 07/28/17 14:25 Lab Statement: Any lab studies that have been ordered have been reviewed, and results considered in the medical decision making process. - Radiology Chest XR Xray Interpretation: No Acute Changes - IMPRESSION: No active cardiopulmonary disease. Dr. Mirza has reviewed this radiology report. Radiology Interpretation Completed By: Radiologist - CT Brain CT CT Interpretation: No Acute Changes - IMPRESSION: Negative examination. Dr. Mirza has reviewed this radiology report. CT Interpretation Completed By: Radiologist Re-Evaluation - Re-Evaluation First Eval Re-Evaluation Time: 16:22 Comment: I reviewed the XR, CT and lab results with the pt. Flu Symptom Course/Dx - Course Assessment/Plan: This pt is a 47 y/o male presenting to [facility] c/o headache, body aches, and fatigue x36 hours. Pt reports that all he has been doing for the past 36 hours is sleep. Pt describes he feels like a "spike" going through his head. He states he had a couple of episodes of blurry vision. He denies SOB , chest pain. Pt is a current smoker. Test results without any significant abnormalities except ESR of 24, carbon monoxide of 6.5. Urinalysis is negative for UTI. Influenza A and B is negative. Rapid strep is negative. Head CT: Negative examination. Chest XR: No active cardiopulmonary disease. In the ED course the pt was given IV fluids, Benadryl, Toradol and Reglan. After these medications all his symptoms resolved. Pt was given duonbes due to wheezing and his symptoms resolved. At this point the pt is asymptomatic with a normal neurological exam. Therefore he will be discharged to home with follow up from his PCP. Pt is hemodynamically stable, alert and oriented x3. He was instructed to return to the ED for any worsening symptoms. - Diagnoses Provider Diagnoses: Headache, Upper respiratory infection Discharge - Discharge Plan Condition: Stable Disposition: HOME Patient Education Materials: Upper Respiratory Infection (ED), General Headache (ED) Referrals: Timothy Edge MD [Primary Care Provider] - 3 Days Additional Instructions: Please follow up with your primary care provider. RETURN TO THE ED FOR ANY WORSENING SYMPTOMS. The documentation as recorded by the Ron hurd Angela accurately reflects the service I personally performed and the decisions made by me, Maged Mirza MD.
== END 2017-07-28 16:45 | disposition home or self-care (01) ==
LOC: ED 12:28
DX: R51 Headache (principal); J06.9 Acute upper respiratory infection, unspecified; F17.200 Nicotine dependence, unspecified, uncomplicated
CPT/HCPCS: 36415; 70450; 71046; 80053; 81003; 82375; 85025; 85652; 87502; 87651; 96361; 96374; 96375; 99283; A9270-GY; J1200; J1885; J2765; Q9967

== ENCOUNTER 2018-08-08 12:43 | Emergency (ER) | payer BC, OTHER ==
--- NOTE | 2018-08-08 13:07 | ED ---
Lower Extremity - HPI Summary HPI Summary: Patient is a 48-year-old male who presents emergency department for a right ankle injury that occurred just prior to arrival work. 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 Patient denies head injury, neck pain, chest pain, shortness breath, abdominal pain, numbness, tingling or weakness. Patient states he is unable to ambulate secondary to pain. Symptoms are mild in severity. Walking and moving ankle makes symptoms worse. Rest makes symptoms better. No significant past medical history. - History of Current Complaint Chief Complaint: EDExtremityLower Stated Complaint: RIGHT ANKLE INJURY Time Seen by Provider: 08/08/18 12:52 Hx Obtained From: Patient Pain Intensity: 7 - Allergies/Home Medications Allergies/Adverse Reactions: Allergies Allergy/AdvReac Type Severity Reaction Status Date / Time No Known Allergies Allergy Verified 02/01/17 04:44 Home Medications: Home Medications Amoxicillin/Clavulanate TAB* [Augmentin TAB 875*] 875 mg PO BID 08/08/18 [ History Confirmed 08/08/18] PMH/Surg Hx/FS Hx/Imm Hx Previously Healthy: Yes Endocrine/Hematology History: Denies: Hx Diabetes Cardiovascular History: Reports: Hx Angina, Hx Hypertension Denies: Hx Congestive Heart Failure Respiratory History: Reports: Other Respiratory Problems/Disorders - pneumothorax Denies: Hx Asthma, Hx Chronic Obstructive Pulmonary Disease (COPD) GI History: Reports: Hx Gastroesophageal Reflux Disease History: Denies: Hx Renal Disease Sensory History: Denies: Hx Contacts or Glasses, Hx Hearing Aid Opthamlomology History: Denies: Hx Contacts or Glasses Neurological History: Reports: Hx Seizures Psychiatric History: Reports: Hx Anxiety, Hx Depression, Hx of Violent Episodes Against Others Denies: Hx Eating Disorder - Surgical History Surgery Procedure, Year, and Place: [place]. Trach. Chest tube Infectious Disease History: No Infectious Disease History: Denies: Hx of Known/Suspected MRSA, Traveled Outside the [place] in Last 30 Days - Family History Known Family History: Positive: Unknown, Other - pos: depression, EtOH abuse Negative: Cardiac Disease - Social History Occupation: Employed Full-time Lives: With Family Alcohol Use: None Alcohol Amount: unknown Hx Substance Use: Yes Substance Use Type: Reports: Marijuana Substance Use Comment - Amount & Last Used: Last used 02/03/18 Hx Tobacco Use: Yes Smoking Status (MU): Heavy Every Day Tobacco Smoker Amount Used/How Often: 1.5 PPD Review of Systems Cardiovascular: Negative Negative: Chest Pain Respiratory: Negative Negative: Shortness Of Breath Gastrointestinal: Negative Negative: Abdominal Pain Positive: Other Negative: Weakness, Paresthesia, Numbness All Other Systems Reviewed And Are Negative: Yes Physical Exam Triage Information Reviewed: Yes Vital Signs On Initial Exam: Initial Vitals Temp Pulse Resp BP Pulse Ox 98.1 F 84 18 117/73 97 08/08/18 12:46 08/08/18 12:46 08/08/18 12:46 08/08/18 12:46 08/08/18 12:46 Vital Signs Reviewed: Yes Appearance: Positive: Well-Appearing - Pt. lying in bed in NAD. Family present. Skin: Positive: Warm, Dry Head/Face: Positive: Normal Head/Face Inspection Eyes: Positive: Normal, EOMI Neck: Positive: Supple Musculoskeletal: Positive: Other - Mild-moderate right malleolus edema and pain. No breaks in the skin. Achilles tendon intact. No foot pain and pain to the base of 5th metatarsal. No proximal tib/fib, knee or hip pain. Good pedal pulse. Neurological: Positive: Normal, CN Intact II-III Psychiatric: Positive: Affect/Mood Appropriate Procedures - Splinting Left Lower Extremity Pre-Made Type: aircast Pre-Proc Neuro Vasc Exam: normal Post-Proc Neuro Vasc Exam: normal Diagnostics - Vital Signs Vital Signs Temp Pulse Resp BP Pulse Ox 08/08/18 12:46 98.1 F 84 18 117/73 97 - Laboratory Lab Statement: Any lab studies that have been ordered have been reviewed, and results considered in the medical decision making process. Lower Extremity Course/Dx - Course Course Of Treatment: Patient presenting with isolated right ankle injury. X- ray shows soft tissue edema without fracture dislocation, reading per radiology. Air splint, Jd wrap, crutches placed. Advised patient to ice and elevate intermittently. Anti-inflammatories for pain as directed. Work excuse given. Advised patient to follow up with orthopedics her PCP for further evaluation if symptoms persist. Patient understands and agrees with plan. - Diagnoses Differential Diagnosis/HQI/PQRI: Positive: Dislocation, Fracture (Closed), Sprain, Strain Provider Diagnoses: Ankle sprain Discharge - Sign-Out/Discharge Documenting (check all that apply): Patient Departure Patient Received Moderate/Deep Sedation with Procedure: No - Discharge Plan Condition: Good Disposition: HOME Patient Education Materials: Ankle Sprain (ED) Forms: *Work Release Referrals: Timothy Edge MD [Primary Care Provider] - Jacinto Ordaz MD [Medical Doctor] - Additional Instructions: Follow up with PCP or orthopedics if pain persist Wear splint for comfort Ice and elevate intermittently NSAIDs for pain as directed such as ibuprofen Return to ER if symptoms change or worsen - Billing Disposition and Condition Condition: GOOD Disposition: Home
[2018-08-08] MEDS ORDERED: Ibuprofen TAB* 800 MG PO ONE (13:35)
[2018-08-08 14:09] VITALS: BP 145/92
== END 2018-08-08 14:07 | disposition home or self-care (01) ==
LOC: ED 12:43
DX: S93.401A Sprain of unspecified ligament of right ankle, initial encounter (principal); I10 Essential (primary) hypertension; K21.9 Gastro-esophageal reflux disease without esophagitis; I20.9 Angina pectoris, unspecified; W10.9XXA Fall (on) (from) unspecified stairs and steps, initial encounter; Y92.9 Unspecified place or not applicable; F17.210 Nicotine dependence, cigarettes, uncomplicated
CPT/HCPCS: 99282; A9270-GY

== ENCOUNTER 2018-09-05 13:19 | Day surgery (SDC) | payer BC ==
[~2018-09-05 13:19] MED LIST: Buffered Lidocaine 1% SYRIN* 1 ML/SYRINGE INTRADERM ONE; Dexamethasone IV* 4 MG/ML 1 ML (4 MG) IV SLOW PU ONE; Famotidine IV* 10 MG/ML 2 ML (20 mg) IV ONE; Lactated Ringers 1000 ML Bag* 1,000 ML IV SCH
[2018-09-05] MEDS ORDERED: Dexamethasone IV* 4 MG/ML 1 ML (4 MG) ONE (13:23)
[2018-09-05] MEDS ORDERED: Famotidine IV* 10 MG/ML 2 ML (20 mg) ONE (13:24)
[2018-09-05] MEDS ORDERED: ceFAZolin 2 GM in NS PREMIX(*) 2 GM/100 ML BAG IVPB ONE (13:24)
[2018-09-05] MEDS ORDERED: fentaNYL* 50 MCG/ML 2 ML VIAL (100 MCG VIAL) ONE (14:46)
[2018-09-05] MEDS ORDERED: Midazolam* 1 MG/ML 5 ML VIAL (5 MG) ONE (14:46)
[2018-09-05] MEDS ORDERED: oxyCODONE/Acetamin 5/325 MG* TAB PO PRN (14:49)
[2018-09-05] MEDS ORDERED: Naloxone* 0.4 MG/ML 1 ML VIAL IV PRN (14:49)
[2018-09-05] MEDS ORDERED: Ondansetron INJ* 2 MG/ML VIAL IV PRN (14:49)
[2018-09-05] MEDS ORDERED: Lidocain 1% EPI 1:100,000 * 30 ML MDV ONE (15:11)
[2018-09-05] MEDS ORDERED: Bupivacaine 0.25% SDV PF* 10 ML VIAL INJ ONE (15:12)
[2018-09-05] MEDS ORDERED: BSS OPTH.SOL* BTL ONE (15:44)
[2018-09-05] MEDS ORDERED: Propofol* 10 MG/ML 20 ML BTL ONE (16:03)
[2018-09-05] MEDS ORDERED: Carboxymethylcellulose/Glyceri 10 ML OPHTH.GEL lubricant eye gel ONE (16:11)
[2018-09-05 16:44] VITALS: BP 114/68
== END 2018-09-05 16:47 | disposition home or self-care (01) ==
LOC: OR 13:19
PROVIDERS: ATTEND Plastic Surgery
DX: L72.0 Epidermal cyst (principal); I10 Essential (primary) hypertension; Z72.0 Tobacco use
CPT/HCPCS: 88304; A9270-GY; J0690; J1100; J2250; J2704; J3010; J3490

== ENCOUNTER 2018-10-07 09:51 | Emergency (ER) | payer BC ==
[2018-10-07] MEDS ORDERED: NS 0.9% 1000 ML** 1,000 ML IV ONE (10:03)
--- NOTE | 2018-10-07 10:07 | ED ---
Neurological HPI - HPI Summary HPI Summary: 48 year old M [facility] [place] [place] by with a chief complaint of left arm numbness since 02:00 today, 10/07/18. The patient rates the pain 7/10 in severity. Symptoms aggravated by nothing. Symptoms alleviated by nothing. Patient states that the numbness began in his left hand, and progressed up to his axillary armpit. He additionally reports left arm pain and stabbing pain in his left fingers. Per , patient additionally has left shoulder blade pain. Patient reports chest dullness. He reports nausea which was resolved with piece of toast. He denies shortness of breath, vomiting, cough, fever, headache, dizziness, bilateral calf pain, left leg numbness, and neck pain. Patient denies trauma to his back but reports that he had numbness in left hand at work over the past few days. Patient has been a smoker for 30 years. Patient has hx HTN. No hx diabetes. Patient is former cocaine user. He quit 1 year ago. says he used to have HTN when he used cocaine but has not been on HTN medication since quitting cocaine. Patient normally in 80s diastolic. He no longer drinks alcohol. Patient's primary care provider is Dr. Edge. reports Fhx HTN. Vital signs while in room: HR 62 bpm, BP 141/102, O2 sat 96% Home Medications Medication Instructions Recorded Confirmed Type NK [No Home Medications Reported] 08/22/18 10/07/18 History - History of Current Complaint Chief Complaint: EDNeurologicalDeficit Stated Complaint: LEFT ARM PAIN/TINGLING/NUMB PER PT Time Seen by Provider: 10/07/18 09:59 Hx Obtained From: Patient, Family/Dust Puller - Onset/Duration: Started hours ago - 02:00 today, Still Present Timing: Constant Current Severity: Moderate Neurological Deficit Location: LUE Pain Intensity: 7 Pain Scale Used: 0-10 Numeric Aggravating: Nothing Alleviating: Nothing - Additional Pertinent History Primary Care Physician: [id number] - Allergy/Home Medications Allergies/Adverse Reactions: Allergies Allergy/AdvReac Type Severity Reaction Status Date / Time bee venom protein (honey bee) Allergy Difficulty Verified 10/07/18 10:22 Breathing/Wheezing PMH/Surg Hx/FS Hx/Imm Hx Previously Healthy: No Endocrine/Hematology History: Denies: Hx Diabetes, Hx Anemia Cardiovascular History: Reports: Hx Angina, Hx Hypertension - history of, no current meds Denies: Hx Congestive Heart Failure, Hx Hypercholesterolemia, Other Cardiovascular Problems/Disorders Respiratory History: Reports: Other Respiratory Problems/Disorders - Pneumothorax age 24 from chicken pox, ICU 3 weeks, trach Denies: Hx Asthma, Hx Chronic Obstructive Pulmonary Disease (COPD) GI History: Reports: Hx Gastroesophageal Reflux Disease Denies: Other GI Disorders History: Reports: Other Problems/Disorders - Enlarged prostate Denies: Hx Renal Disease Musculoskeletal History: Denies: Other Musculoskeletal History Sensory History: Denies: Hx Contacts or Glasses, Hx Hearing Aid Opthamlomology History: Denies: Hx Contacts or Glasses Neurological History: Reports: Hx Seizures Denies: Other Neuro Impairments/Disorders Psychiatric History: Reports: Hx Anxiety - history of not recently, Hx Depression - history of, not recently, Hx of Violent Episodes Against Others Denies: Hx Eating Disorder - Surgical History Surgery Procedure, Year, and Place: Appendectomy 1983 [place]. Tracheostomy- temporary 1994. Chest tube - [place]. Cyst removed and Vasectomy 2004 Hx Anesthesia Reactions: No Infectious Disease History: No Infectious Disease History: Denies: Hx of Known/Suspected MRSA, Traveled Outside the [place] in Last 30 Days - Family History Known Family History: Positive: Hypertension - Father, Other - pos: depression, EtOH abuse Negative: Cardiac Disease - Social History Alcohol Use: None Alcohol Amount: quit Hx Substance Use: Yes Substance Use Type: Reports: Cocaine - quit in 2018, Marijuana Substance Use Comment - Amount & Last Used: once in awhile Hx Tobacco Use: Yes Smoking Status (MU): Heavy Every Day Tobacco Smoker Type: Cigarettes Amount Used/How Often: 1 PPD 15 - 20 years Have You Smoked in the Last Year: Yes Review of Systems Negative: Fever Positive: Other - chest dullness Negative: Shortness Of Breath, Cough Positive: Nausea - resolved. Negative: Vomiting Musculoskeletal: Negative - Neck pain, bilateral calf pain Positive: Other - left arm pain, stabbing pain in his left fingers, left shoulder blade pain Neurological: Negative - Dizzinses, left leg numbness, Other - left arm numbness Negative: Headache All Other Systems Reviewed And Are Negative: Yes Physical Exam - Summary Physical Exam Summary: Appearance: Ill-appearing, moderate pain distress, well-nourished Skin: Warm, color reflects adequate perfusion, dry Head: Normal Head/Face inspection, atraumatic Eyes: Conjunctiva clear ENT: Normal inspection Neck: Supple, no nodes, no JVD Respiratory: Lungs clear, normal breath sounds, no respiratory distress Cardio: RRR, No murmur, pulses normal, brisk capillary refill Abdomen: Soft, nontender Bowel sounds: Present Musculoskeletal: Painful with raising left arm Psychological: Normal Neuro: A&O x3, CN II-XII intact, motor function 5/5, sensation intact, cerebellar normal GCS: 15 Triage Information Reviewed: Yes Vital Signs On Initial Exam: Initial Vitals Temp Pulse Resp BP Pulse Ox 97.3 F 62 16 141/102 96 10/07/18 09:55 10/07/18 09:55 10/07/18 09:55 10/07/18 09:55 10/07/18 09:55 Vital Signs Reviewed: Yes Diagnostics - Vital Signs Vital Signs Temp Pulse Resp BP Pulse Ox 10/07/18 09:55 97.3 F 62 16 141/102 96 - Laboratory Result Diagrams: 10/07/18 10:18 10/07/18 10:18 Lab Statement: Any lab studies that have been ordered have been reviewed, and results considered in the medical decision making process. - Radiology CXR Radiology Interpretation Completed By: Radiologist Summary of Radiographic Findings: NO ACTIVE CARDIOPULMONARY DISEASE. ED physician has reviewed this report. Left shoulder Radiology Interpretation Completed By: Radiologist Summary of Radiographic Findings: NO ACUTE OSSEOUS INJURY. IF SYMPTOMS PERSIST, RECOMMEND REPEAT IMAGING. ED physician has reviewed this report. - CT Brain CT Interpretation Completed By: Radiologist Summary of CT Findings: NO ACUTE INTRACRANIAL PATHOLOGY. ED physician has reviewed this report. Cervical spine CT Interpretation Completed By: Radiologist Summary of CT Findings: 1. MILD DEGENERATIVE DISC DISEASE AND OSTEOARTHRITIS. 2. THERE IS NEURAL FORAMINAL NARROWING DESCRIBED ABOVE. THERE IS NO SIGNIFICANT OSSEOUS CENTRAL CANAL STENOSIS. ED physician has reviewed this report. - EKG 1020 Cardiac Rate: Bradycardia - 57 BPM EKG Rhythm: Sinus Bradycardia ST Segment: Non-Specific Ectopy: None EKG Comparison: Other - Compared with previous EKG on 02/01/17, first degree AV block and IVCD prolongation are new Summary of EKG Findings: First degree AV block (206). Prolonged IVCD (115) with non-specific pattern. Normal QTc. Left axis (-22) NIH Scale - NIH Scale Level of Consciousness: Alert/Keenly Responsive Ask Patient the Month and His/Her Age: Both Correct Ask Pt to Open/Close Eyes and Jboss Architect/Release Non-Paretic Hand: Both Correctly Best Gaze (Only Horizontal Eye Movement): Normal Visual Field Testing: No Visual Loss Facial Paresis-Pt to Smile & Close Eyes or Grimace Symmetry: Normal/Symmetrical Motor Function - Right Arm: No Drift-Holds 10 Seconds Motor Function - Left Arm: No Drift-Holds 10 Seconds Motor Function - Right Leg: No Drift-Holds 10 Seconds Motor Function - Left Leg: No Drift-Holds 10 Seconds Limb Ataxia-Must be out of Proportion to Weakness Present: Absent Sensory (Use Pinprick to Test Arms/Legs/Trunk/Face): Normal Best Language (Describe Picture, Name Items): No Aphasia Dysarthria (Read Several Words): Normal Extinction and Inattention: No Abnormality Total Score: 0 Re-Evaluation - Re-Evaluation First Eval Re-Evaluation Time: 10:50 Change: Unchanged Comment: Patient in CT Second Eval Re-Evaluation Time: 10:52 Change: Improved Comment: Patient back from CT. BP 127/89. Patient reports that numbness went away briefly then came back. Third Eval Re-Evaluation Time: 10:58 Change: Unchanged Comment: Patient was given update on his first troponin level. Patient does not have chest pain or arm numbness. Fourth Eval Re-Evaluation Time: 11:43 Change: Unchanged Comment: Patient was given a copy of his CT. He is still with intermittent numbness. 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 He agrees to medicate with ibuprofen and get an x-ray of his shoulder. Fifth Eval Re-Evaluation Time: 14:17 Change: Improved Comment: Patient is pain free and agrees to discharge. Patient states he will follow up. Course/Dx - Course Course Of Treatment: Patient medications reviewed this visit. Nurses notes reviewed. Allergies noted. High blood pressure noted. NIH stroke 0. Bloodwork is unremarkable. First troponin is 0. CXR shows NO ACTIVE CARDIOPULMONARY DISEASE. CT Brain shows NO ACUTE INTRACRANIAL PATHOLOGY. Cervical spine CT shows 1. MILD DEGENERATIVE DISC DISEASE AND OSTEOARTHRITIS. 2. THERE IS NEURAL FORAMINAL NARROWING. THERE IS NO SIGNIFICANT OSSEOUS CENTRAL CANAL STENOSIS. 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 He agrees to medicate with ibuprofen and get an x-ray of his shoulder. In ED course, patient was given Motrin PO and IV fluids. Left shoulder x-ray shows NO ACUTE OSSEOUS INJURY. Second troponin is 0.01. Patient will be discharged home with follow up from Dr. Edge, primary care provider, in 2 days. He was advised to take tylenol or ibuprofen for discomfort. Patient was instructed to return to ED for new or worsening symptoms. Patient understands and is agreeable to discharge plan. - Diagnoses Provider Diagnoses: Chest pain, Left arm numbness, Poor high blood pressure control, Tobacco abuse disorder Discharge - Sign-Out/Discharge Documenting (check all that apply): Patient Departure - Discharge Patient Received Moderate/Deep Sedation with Procedure: No - Discharge Plan Condition: Stable Disposition: HOME Patient Education Materials: Paresthesia (ED), Arm Pain (ED) Referrals: Timothy Edge MD [Primary Care Provider] - 2 Days Additional Instructions: We tested your cardiac enzymes today in case your left arm pain and numbness were cardiac related. The enzymes were normal 3 hrs apart, so we do not think your discomfort is from your heart. It is likely a pinched nerve either from your shoulder or your neck. You should see Dr. Edge as soon as possible to have him order further treatment and tests for you. You may take tylenol or ibuprofen for discomfort. Return to the Emergency Department for new or worsening symptoms. - Attestation Statements Document Initiated by Scribe: Yes Documenting Scribe: Macy Garcia Provider For Whom Scribe is Documenting (Include Credential): Lyric Villasenor MD Scribe Attestation: Macy Gonzalez, scribed for Lyric Villasenor MD on 10/07/18 at 1421. Status of Scribe Document: Ready
[2018-10-07 10:36] LABS: ABS Basophils 0.1 10^3/ul (0-0.2); ABS Eosinophils 0.2 10^3/ul (0-0.6); ABS Lymphocytes 2.3 10^3/ul (1.0-4.8); ABS Monocytes 0.5 10^3/ul (0-0.8); ABS Neutrophils 3.1 10^3/ul (1.5-7.7); ABS Nucleated RBC 0 10^3/ul; Eosinophil % 2.9 %; Hematocrit 42 % (36-46); Hemoglobin 14.3 g/dL (14.0-18.0); Mean Corpuscular HGB Conc 34 g/dL (31-36); Mean Corpuscular Hemoglobin 30 pg (27-31); Mean Corpuscular Volume 90 fL (80-94); Nucleated Red Blood Cells % 0; Platelet Count 140 10^3/uL (150-450); Red Blood Count 4.71 10^6 /uL (4.18-5.48); Red Cell Distribution Width 14 % (10.5-15); White Blood Count 6.1 10^3/uL (3.5-10.8)
[2018-10-07 10:47] LABS: ALT 22 U/L (7-52); AST 23 U/L (13-39); Albumin 3.9 g/dL (3.2-5.2); Albumin/Globulin Ratio 1.4 (1-3); Alkaline Phosphatase 57 U/L (34-104); Anion Gap 5 mmol/L (2-11); Blood Urea Nitrogen 15 mg/dL (6-24); CO2 Carbon Dioxide 25 mmol/L (22-32); Calcium 8.8 mg/dL (8.6-10.3); Chloride 108 mmol/L (101-111); Cholesterol 171 mg/dL; EGFR African American 127.8 (>60); EGFR Non-African American 105.6 (>60); Globulin 2.8 g/dL (2-4); Glucose 103 mg/dL (70-100); HDL Cholesterol 53.6 mg/dL; LDL Cholesterol 102 mg/dL; Potassium 4.1 mmol/L (3.5-5.0); Sodium 138 mmol/L (135-145); Total Protein 6.7 g/dL (6.4-8.9); Triglycerides 77 mg/dL
[2018-10-07 10:49] LABS: INR 0.98 (0.82-1.09)
[2018-10-07 11:11] LABS: Alcohol < 10 mg/dL (<10)
[2018-10-07] MEDS ORDERED: Ibuprofen TAB* 600 MG PO ONE (11:44)
[2018-10-07 14:31] LABS: Urine Appearance Clear; Urine Bilirubin Negative (Negative); Urine Blood Negative (Negative); Urine Color Yellow; Urine Glucose Negative (Negative); Urine Ketones Negative (Negative); Urine Nitrite Negative (Negative); Urine Protein Negative (Negative); Urine Specific Gravity 1.015 (1.010-1.030); Urine Urobilinogen Negative (Negative)
[2018-10-07 14:51] LABS: Urine Benzodiazepine Screen None Detected (None Detect); Urine Opiates Screen None Detected (None Detect)
[2018-10-07 15:04] VITALS: BP 110/82
== END 2018-10-07 15:04 | disposition home or self-care (01) ==
LOC: ED 09:51
DX: R07.9 Chest pain, unspecified (principal); I10 Essential (primary) hypertension; K21.9 Gastro-esophageal reflux disease without esophagitis; R20.0 Anesthesia of skin; F17.210 Nicotine dependence, cigarettes, uncomplicated; M50.30 Other cervical disc degeneration, unspecified cervical region; M47.9 Spondylosis, unspecified; M48.02 Spinal stenosis, cervical region; R94.31 Abnormal electrocardiogram [ECG] [EKG]
CPT/HCPCS: 36415; 70450; 71045; 72125; 80053; 80061; 80307; 80320; 81003; 83605; 84484; 85025; 85610; 85730; 93005; 96360; 99284; A9270-GY; G0480

== ENCOUNTER 2019-01-19 11:36 | Emergency (ER) | payer BC ==
[2019-01-19] MEDS ORDERED: EPINEPHRINE 1 MG/ML 1 ML VIAL IM ONE (11:46)
[2019-01-19] MEDS ORDERED: diPHENhydraMINE IV* 50 MG/ML 1 ml VIAL (BENADRYL) IV ONE (11:46)
[2019-01-19] MEDS ORDERED: NS 0.9% 1000 ML** 1,000 ML IV ONE (11:46)
[2019-01-19] MEDS ORDERED: Famotidine IV* 10 MG/ML 2 ML (20 mg) IV SLOW PU ONE (11:47)
[2019-01-19] MEDS ORDERED: methylPREDNISolone 125 MG* 2 ML VIAL IV ONE (11:47)
[2019-01-19] MEDS ORDERED: Famotidine IV* 10 MG/ML 2 ML (20 mg) ONE (11:49)
--- NOTE | 2019-01-19 11:52 | ED ---
Allergic Reaction/Systemic - HPI Summary HPI Summary: This pt is a 49 y/o male presenting to [facility] s/p being stung by a bee today. Pt reports he was stung by a bee at approximately 11:15. He notes he has an allergy to bees. Pt has an epipen but states it was and he did not use it. Pt c/o chest tightness and SOB. Pt denies any fever, chills, erythema of eyes, sore throat, cough, abd pain, nausea, vomiting, dysuria, hematuria, myalgia, edema, rash, or dizziness. He did not take any medications [employer]. Pt denies any PMHx. - History of Current Complaint Chief Complaint: EDAllergicReaction Hx Obtained From: Patient Onset/Duration: Started minutes ago, Still Present Timing: Lasting Minutes Pain Intensity: 0 Aggravating Factor(s): Nothing Alleviating Factor(s): Nothing Associated Signs And Symptoms: Positive: Chest Pain, Difficulty Breathing - Allergies/Home Medications Allergies/Adverse Reactions: Allergies Allergy/AdvReac Type Severity Reaction Status Date / Time bee venom protein (honey bee) Allergy Difficulty Verified 10/07/18 10:22 Breathing/Wheezing PMH/Surg Hx/FS Hx/Imm Hx Endocrine/Hematology History: Denies: Hx Diabetes, Hx Anemia Cardiovascular History: Reports: Hx Angina, Hx Hypertension - history of, no current meds Denies: Hx Congestive Heart Failure, Hx Hypercholesterolemia, Other Cardiovascular Problems/Disorders Respiratory History: Reports: Other Respiratory Problems/Disorders - Pneumothorax age 24 from chicken pox, ICU 3 weeks, trach Denies: Hx Asthma, Hx Chronic Obstructive Pulmonary Disease (COPD) GI History: Reports: Hx Gastroesophageal Reflux Disease Denies: Other GI Disorders History: Reports: Hx Benign Prostatic Hyperplasia, Other Problems/ Disorders - Enlarged prostate Denies: Hx Renal Disease Musculoskeletal History: Denies: Other Musculoskeletal History Sensory History: Denies: Hx Contacts or Glasses, Hx Hearing Aid Opthamlomology History: Denies: Hx Contacts or Glasses Neurological History: Reports: Hx Seizures Denies: Other Neuro Impairments/Disorders Psychiatric History: Reports: Hx Anxiety - history of not recently, Hx Depression - history of, not recently, Hx of Violent Episodes Against Others, Hx Substance Abuse - hx cocaine abuse, DC'd 2017 Denies: Hx Eating Disorder - Surgical History Surgery Procedure, Year, and Place: Appendectomy 1984 [place]. Tracheostomy- temporary 1994. Chest tube - [place]. Cyst removed and Vasectomy 2005 Hx Anesthesia Reactions: No Infectious Disease History: No Infectious Disease History: Denies: Hx of Known/Suspected MRSA, Traveled Outside the [place] in Last 30 Days - Family History Known Family History: Positive: Unknown, Hypertension - Father, Other - pos: depression, EtOH abuse Negative: Cardiac Disease - Social History Alcohol Use: None Alcohol Amount: quit Hx Substance Use: Yes Substance Use Type: Reports: Cocaine - quit in 2018, Marijuana Substance Use Comment - Amount & Last Used: once in awhile Hx Tobacco Use: Yes Smoking Status (MU): Heavy Every Day Tobacco Smoker Type: Cigarettes Amount Used/How Often: 1 PPD 15 - 20 years Have You Smoked in the Last Year: Yes Review of Systems Negative: Fever, Chills Negative: Erythema Negative: Sore Throat Positive: Chest Pain Positive: Shortness Of Breath. Negative: Cough Negative: Abdominal Pain, Vomiting, Nausea Negative: dysuria, hematuria Negative: Myalgia, Edema Negative: Rash Neurological: Other - NEGATIVE: dizziness All Other Systems Reviewed And Are Negative: Yes Physical Exam - Summary Physical Exam Summary: Constitutional: Well-developed, Well-nourished, Alert. Flushed appearing. Skin: Warm, Dry HENT: Normocephalic; Atraumatic Eyes: Conjunctiva normal Neck: Musculoskeletal ROM normal neck. (-) JVD, (-) Stridor, (-) Tracheal deviation Cardio: Rhythm regular, rate normal, Heart sounds normal; Intact distal pulses; The pedal pulses are 2+ and symmetric. Radial pulses are 2+ and symmetric. (-) Murmur Pulmonary/Chest wall: Effort normal. Patient is wheezing. (-) Respiratory distress, (-) Rales Abd: Soft, (-) tenderness, (-) Distension, (-) Guarding, (-) Rebound Musculoskeletal: (-) Edema Lymph: (-) Cervical adenopathy Neuro: Alert, Oriented x3 Psych: Mood and affect Normal Triage Information Reviewed: Yes Vital Signs On Initial Exam: Initial Vitals Temp Pulse Resp BP Pulse Ox 98.6 F 89 18 166/103 94 01/19/19 11:37 01/19/19 11:37 01/19/19 11:37 01/19/19 11:37 01/19/19 11:37 Vital Signs Reviewed: Yes Diagnostics - Vital Signs Vital Signs Temp Pulse Resp BP Pulse Ox 01/19/19 11:37 98.6 F 89 18 166/103 94 - Laboratory Lab Statement: Any lab studies that have been ordered have been reviewed, and results considered in the medical decision making process. Re-Evaluation - Re-Evaluation First Eval Re-Evaluation Time: 14:37 Change: Improved Comment: Pt is feeling better. He will be discharged home. Allergic Reaction Course/Dx - Course Assessment/Plan: Pt is a 49 y/o male, with hx of bee allergy, presenting to [facility] c/o chest tightness and SOB s/p being stung by a bee today. Pt reports he was stung by a bee at approximately 11:15. Pt has an epipen but states it was and he did not use it. In the ED course the pt was given allergic reaction kit, IV fluids, duoneb treatment. Pt is feeling better and is eating without any difficulty. He will be discharged home with follow up from his PCP in 2-3 days. He was given prescriptions for epi pen and prednisone. Pt was given instructions to return to the ED for any worsening or new symptoms. - Diagnoses Provider Diagnoses: Anaphylactic reaction to bee sting Discharge - Sign-Out/Discharge Documenting (check all that apply): Patient Departure - Discharge home Patient Received Moderate/Deep Sedation with Procedure: No - Discharge Plan Condition: Stable Disposition: HOME Prescriptions: EPINEPHrine [Epipen 2-Roland] 0.3 mg IM DAILY PRN #2 inj PRN Reason: Allergy Symptoms predniSONE TAB* [Deltasone TAB*] 50 mg PO DAILY #3 tab Patient Education Materials: Insect Bite or Sting (ED), Anaphylaxis (ED) Referrals: Timothy Edge MD [Primary Care Provider] - Additional Instructions: Follow up with your primary care provider in 2-3 days. RETURN TO THE EMERGENCY DEPARTMENT FOR CHANGING OR WORSENING SYMPTOMS. - Attestation Statements Document Initiated by Scribe: Yes Documenting Scribe: Linda Velasquez Provider For Whom Scribe is Documenting (Include Credential): Noe Cuevas MD Scribe Attestation: Linda Gonzalez, scribed for Noe Cuevas MD on 01/19/19 at 1445. Status of Scribe Document: Ready
[2019-01-19] MEDS ORDERED: Albuterol/Ipratropium NEB.SOL* Albuterol 2.5 MG/Ipratropium 0.5 MG 3 ML INH ONE (12:08)
[2019-01-19 14:57] VITALS: BP 110/80
== END 2019-01-19 14:56 | disposition home or self-care (01) ==
LOC: ED 11:36
DX: T63.441A Toxic effect of venom of bees, accidental (unintentional), initial encounter (principal); Y92.9 Unspecified place or not applicable; I20.9 Angina pectoris, unspecified; I10 Essential (primary) hypertension; K21.9 Gastro-esophageal reflux disease without esophagitis; F17.210 Nicotine dependence, cigarettes, uncomplicated
CPT/HCPCS: 96361; 96372; 96374; 96375; 99282; A9270-GY; J1200; J2930